=== PATIENT | female | born 2000 | race Caucasian/White ===

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

== ENCOUNTER 2022-01-17 09:54 | Emergency (ER) | payer BC, MEDICAID ==
[~2022-01-17] VITALS: Ht 167.6 cm; Wt 70.9 kg
[~2022-01-17 09:54] MED LIST: LIDO20SO16 PO
[2022-01-17 10:16] VITALS: BP 133/78
== END 2022-01-17 14:00 | disposition home or self-care (01) ==
LOC: ER 09:54
DX: J02.9 Acute pharyngitis, unspecified (principal); Z53.21 Procedure and treatment not carried out due to patient leaving prior to being seen by health care provider

== ENCOUNTER 2023-08-08 22:49 | Emergency (ER) | payer MEDICAID ==
[~2023-08-08] VITALS: Ht 170.2 cm; Wt 72.7 kg
[2023-08-08] MEDS ORDERED: ketorolac trometh. 30mg/ml inj. IM ONE (23:20)
[2023-08-08] MEDS ORDERED: NAPR-56 PO (23:21)
[2023-08-08] MEDS ORDERED: DOXY-1 PO (23:21)
[2023-08-08] MEDS: diphenhydrAMINE 50 mg/ml inj IM ONE (23:26)
[2023-08-08] MEDS: ketorolac tromethamine 15mg/ml inj. IM ONE (23:30)
[2023-08-08 23:42] VITALS: BP 142/93; PULSE 76; RESP 16; TEMP 96.9; O2SAT 98
== END 2023-08-08 23:44 | disposition home or self-care (01) ==
LOC: ER 22:50
DX: K04.7 Periapical abscess without sinus (principal); Z79.899 Other long term (current) drug therapy
CPT/HCPCS: 96372; 99284; J1200; J1885